=== PATIENT | female | born 1980 | race African-American/Black ===

== ENCOUNTER 2016-08-26 23:15 | Emergency (ER) | payer BC, OTHER ==
[~2016-08-26] VITALS: Ht 157.5 cm; Wt 60.8 kg
[~2016-08-26 23:15] MED LIST: NAPR500T8 PO
[2016-08-26 23:22] VITALS: BP 106/76
--- NOTE | 2016-08-26 23:51 | PHYS DOC ---
Past Medical History Past Medical History: No Pertinent History Past Surgical History: Tubal ligation, Other Additional Past Surgical Histo: uterine ablation Alcohol Use: Rarely Drug Use: None Adult General Chief Complaint Chief Complaint: ANKLE PROBLEM HPI HPI Patient is a 35 year old male presents emergency department stating that she was playing with her child when they were walking into the house when she stepped her child shoe and twisted her right ankle. She states that she is having pain on the lateral part of the ankle with mild tenderness noted on the medial part of the ankle as well. She denies any numbness or tingling into the toes. She denies any medications been taken for pain and discomfort. Review of Systems Review of Systems Constitutional: Denies fever or chills [] Eyes: Denies change in visual acuity, redness, or eye pain [] HENT: Denies nasal congestion or sore throat [] Respiratory: Denies cough or shortness of breath [] Cardiovascular: No additional information not addressed in HPI [] GI: Denies abdominal pain, nausea, vomiting, bloody stools or diarrhea [] : Denies dysuria or hematuria [] Musculoskeletal: Denies back pain. C/o right lateral and medial ankle pain Integument: Denies rash or skin lesions [] Neurologic: Denies headache, focal weakness or sensory changes [] Current Medications Current Medications Current Medications Medications (Trade) Dose Ordered Sig/Daniel Start Time Stop Time Status Last Admin Dose Admin Ibuprofen (Motrin) 800 mg 1X ONCE 08/27/16 00:00 08/27/16 00:01 DC 08/27/16 00:09 800 MG Allergies Allergies Allergies Coded Allergies Type Severity Reaction Last Updated Verified No Known Drug Allergies 11/28/15 No Physical Exam Physical Exam Constitutional: Well developed, well nourished, no acute distress, non-toxic appearance. [] HENT: Normocephalic, atraumatic, bilateral external ears normal, oropharynx moist, no oral exudates, nose normal. [] Eyes: PERRLA, EOMI, conjunctiva normal, no discharge. [] Neck: Normal range of motion, no tenderness, supple, no stridor. [] Cardiovascular:Heart rate regular rhythm Lungs & Thorax: no respiratory distress noted Skin: Warm, dry, no erythema, no rash. [] Back: No tenderness Extremities: right medial and lateral tenderness, no cyanosis, no clubbing, ROM intact, no edema. Peripheral pulses 2+ cap refill brisk less than 2 seconds. Patient able to move toes without any difficulty. No bruising or discoloration noted minimal swelling noted on the lateral part of the ankle. Neurologic: Alert and oriented X 3, normal motor function, normal sensory function, no focal deficits noted. [] Psychologic: Affect normal, judgement normal, mood normal. [] Current Patient Data Vital Signs Vital Signs Date Time Temp Pulse Resp B/P Pulse Ox O2 Delivery O2 Flow Rate FiO2 08/26/16 23:22 98.8 84 16 100 Room Air 98.8 EKG EKG [] Radiology/Procedures Radiology/Procedures [] Course & Med Decision Making Course & Med Decision Making Pertinent Labs and Imaging studies reviewed. (See chart for details) X-ray was negative for any bony abnormalities per Dr. Llanos. Patient will be placed in Dillan wrap and an Air-Stirrup splint with recommendations to wear the Dillan wrap for the next 5-7 days in the Air-Stirrup splint for the next 7-10 days. Patient will be discharged home in stable condition with recommendations for ice packs on 20 minutes off 20 minutes several times a day elevation as much as possible. Tylenol and ibuprofen for pain and discomfort. Patient will be provided with orthopedic name and number to follow up within one week. Signs symptoms to return back to emergency department as been provided. [] Dragon Disclaimer Dragon Disclaimer This electronic medical record was generated, in whole or in part, using a voice recognition dictation system. Departure Departure Impression: Primary Impression: Right ankle sprain Disposition: 01 HOME, SELF-CARE Condition: STABLE Referrals: BHAVIK TRUJILLO (PCP) BRITTANI CUEVAS MD Patient Instructions: Ankle Sprain, [id number] Additional Instructions: Your x-rays were negative for any bony abnormalities. Ice packs on 20 minutes off 20 minutes several times a day. Elevation as much as possible. Tylenol or ibuprofen for pain and discomfort. Wear the Dillan wrap for the next 5-7 days, wear the Air-Stirrup splint for the next 7-10 days. Follow-up with orthopedic in the next week. Return back to emergency prior signs and symptoms of become worse. MELINA DAVEY APRN Aug 26, 2016 23:51
[2016-08-27] MEDS ORDERED: IBUPROFEN 800 MG TABLET. PO ONE
--- NOTE | 2016-08-27 08:19 | RAD ---
Three-view right ankle study History: Twisting injury. Right ankle pain. Findings: No acute fracture or dislocation or osteolytic process is seen. The mortise ankle joint is intact. IMPRESSION: No acute fracture.
== END 2016-08-27 00:31 | disposition home or self-care (01) ==
LOC: ER 23:15
DX: S93.401A Sprain of unspecified ligament of right ankle, initial encounter (principal); X58.XXXA Exposure to other specified factors, initial encounter; Y93.01 Activity, walking, marching and hiking; Y92.89 Other specified places as the place of occurrence of the external cause; Y99.8 Other external cause status
CPT/HCPCS: 29515; 73610; 99284-25